=== PATIENT | female | born 1980 | race Caucasian/White ===

== ENCOUNTER 2019-05-02 17:39 | Outpatient (CLI) | payer OTHER ==
[2019-05-02] MEDS ORDERED: PRENATAL TABLE1 EAC1 PO (18:01)
[2019-05-02] MEDS ORDERED: ADULT ASPIRIN R81 MG PO (18:02)
== END 2019-05-03 13:44 | disposition home or self-care (01) ==
LOC: OBS/DEL 17:39
DX: O76 Abnormality in fetal heart rate and rhythm complicating labor and delivery (principal); O35.8XX0 Maternal care for other (suspected) fetal abnormality and damage, not applicable or unspecified; O44.03 Complete placenta previa NOS or without hemorrhage, third trimester

== ENCOUNTER 2019-06-10 13:52 | Outpatient (CLI) | payer OTHER ==
[~2019-06-10 13:52] MED LIST: ADULT ASPIRIN R81 MG PO; PRENATAL TABLE1 EAC1 PO
== END 2019-06-11 10:52 | disposition home or self-care (01) ==
LOC: OBS/DEL 13:52
DX: O41.03X0 Oligohydramnios, third trimester, not applicable or unspecified (principal); O44.03 Complete placenta previa NOS or without hemorrhage, third trimester; O36.8193 Decreased fetal movements, unspecified trimester, fetus 3; O09.513 Supervision of elderly primigravida, third trimester; O41.00X1 Oligohydramnios, unspecified trimester, fetus 1

== ENCOUNTER 2019-06-14 15:30 | Inpatient (IN) | payer OTHER ==
[~2019-06-14] VITALS: Ht 170.2 cm; Wt 2.3 kg
[2019-06-18] MEDS ORDERED: ALBUTEROL2.5 MG/3 M (13:22)
== END 2019-06-22 13:36 | disposition home or self-care (01) | DRG 787 ==
LOC: LDR 06-18 11:37 → O/R 06-18 14:45 → OB/GYN 06-18 15:30
PROVIDERS: ADMIT Obstetrics & Gynecology
PROC: 4A1HXCZ Monitoring of Products of Conception, Cardiac Rate, External Approach (ICD-10-PCS; 2019-06-18)
PROC: 10D00Z1 Extraction of Products of Conception, Low, Open Approach (ICD-10-PCS; principal; 2019-06-18 12:00)
DX: O82 Encounter for cesarean delivery without indication (principal); O44.03 Complete placenta previa NOS or without hemorrhage, third trimester; O42.913 Preterm premature rupture of membranes, unspecified as to length of time between rupture and onset of labor, third trimester; Z3A.36 36 weeks gestation of pregnancy; Z37.0 Single live birth; Z22.330 Carrier of Group B streptococcus

== ENCOUNTER 2021-10-06 07:58 | Outpatient (CLI) | payer OTHER ==
[~2021-10-06 07:58] MED LIST changes: +ALBUTEROL2.5 MG/3 M
== END 2021-10-06 08:46 | disposition home or self-care (01) ==
LOC: PRENATAL 07:58
PROVIDERS: ATTEND Obstetrics & Gynecology Maternal & Fetal Medicine
DX: O36.80X0 Pregnancy with inconclusive fetal viability, not applicable or unspecified (principal); O09.529 Supervision of elderly multigravida, unspecified trimester; O34.219 Maternal care for unspecified type scar from previous cesarean delivery; Z3A.13 13 weeks gestation of pregnancy

== ENCOUNTER 2021-11-24 08:13 | Outpatient (CLI) | payer OTHER | END 2021-11-24 09:15 | disposition home or self-care (01) | LOC: PRENATAL 08:13 | PROVIDERS: ATTEND Obstetrics & Gynecology Maternal & Fetal Medicine | DX: O35.0XX0 Maternal care for (suspected) central nervous system malformation in fetus, not applicable or unspecified (principal); O35.3XX0 Maternal care for (suspected) damage to fetus from viral disease in mother, not applicable or unspecified; O09.529 Supervision of elderly multigravida, unspecified trimester; O34.219 Maternal care for unspecified type scar from previous cesarean delivery; O44.00 Complete placenta previa NOS or without hemorrhage, unspecified trimester; Z3A.20 20 weeks gestation of pregnancy ==

== ENCOUNTER 2022-02-18 08:43 | Outpatient (CLI) | payer OTHER | END 2022-02-18 09:37 | disposition home or self-care (01) | LOC: PRENATAL 08:43 | DX: O26.849 Uterine size-date discrepancy, unspecified trimester (principal); O35.0XX0 Maternal care for (suspected) central nervous system malformation in fetus, not applicable or unspecified; O09.529 Supervision of elderly multigravida, unspecified trimester; O34.219 Maternal care for unspecified type scar from previous cesarean delivery; Z3A.32 32 weeks gestation of pregnancy ==

== ENCOUNTER 2022-04-01 09:15 | Inpatient (IN) | payer OTHER ==
[~2022-04-01] VITALS: Ht 170.2 cm; Wt 82.6 kg
== END 2022-04-07 13:10 | disposition home or self-care (01) | DRG 785 ==
LOC: SURG 04-04 09:15 → O/R 04-04 12:41 → OB/GYN 04-04 12:41 → SURG 04-04 15:00 → OB/GYN 04-04 16:08
PROVIDERS: ADMIT Obstetrics & Gynecology; ATTEND Obstetrics & Gynecology
PROC: 0UB70ZZ Excision of Bilateral Fallopian Tubes, Open Approach (ICD-10-PCS; 2022-04-04)
PROC: 4A1HXCZ Monitoring of Products of Conception, Cardiac Rate, External Approach (ICD-10-PCS; 2022-04-04)
PROC: 10D00Z1 Extraction of Products of Conception, Low, Open Approach (ICD-10-PCS; principal; 2022-04-04 14:00)
DX: O34.211 Maternal care for low transverse scar from previous cesarean delivery (principal); Z30.2 Encounter for sterilization; Z3A.38 38 weeks gestation of pregnancy; Z37.0 Single live birth; Z20.822 Contact with and (suspected) exposure to COVID-19

== ENCOUNTER 2022-04-01 13:23 | Outpatient (CLI) | payer OTHER ==
[~2022-04-01] VITALS: Ht 170.2 cm; Wt 82.6 kg
== END 2022-04-02 11:07 | disposition home or self-care (01) ==
LOC: OBS/DEL 13:23
PROVIDERS: ATTEND Obstetrics & Gynecology
DX: O26.893 Other specified pregnancy related conditions, third trimester (principal); Z3A.38 38 weeks gestation of pregnancy; N89.8 Other specified noninflammatory disorders of vagina